=== PATIENT | male | born 1955 | race Caucasian/White ===

== ENCOUNTER 2023-03-16 11:09 | Outpatient (CLI) | payer MEDICARE, SELFPAY ==
[2023-03-16 11:36] VITALS: BP 151/72; PULSE 64; RESP 16; O2SAT 96
[2023-03-16] MEDS: TETRACAINE 0.5% OPHTH 1 DROP EYE-RIGHT ×3 (11:40→12:30)
[2023-03-16] MEDS: BRIMONIDINE TARTRATE 0.2% OPHTH 1 DROP EYE-RIGHT ×2 (11:41→12:34)
--- NOTE | 2023-03-16 12:35 | P.OPTPRC_ITS ---
Procedure Note Date of procedure: 03/16/23 Will [facility] bill your pro fee for this procedure?: Yes Procedure Description: SURGEON: Flaca Brooke MD PREOPERATIVE DIAGNOSIS: Posterior capsular opacity, right eye POSTOPERATIVE DIAGNOSIS: Posterior capsular opacity, right eye PROCEDURE: YAG laser capsulotomy, right eye ANESTHESIA: Topical. ESTIMATED BLOOD LOSS: None PATHOLOGY SPECIMEN: None COMPLICATIONS: None INDICATIONS: See consult note for details. The risks, benefits and alternatives of the procedure were explained to the patient, who elected to proceed and signed informed consent to do so. PROCEDURE: The patient was brought to the pre-holding area where the right eye was identified as the operative eye. I placed my initials above this eye. The patient received 2 sets of 1 drop of 0.5% tetracaine and 1 drop of 1% tropicamide. They also received 1 drop of 0.2% brimonidine. They received 1 drop of 0.5% tetracaine immediately prior to bringing them back for the procedure. The patient was then brought to the procedure room where the right eye was again identified as the operative eye. A YAG Valente capsulotomy lens was placed on the eye. The laser was administered using a total number of 10 shots with an energy of 2.4 mJ per shot for a total energy of 24 mJ. The patient tolerated the procedure well. DISPOSITION: The patient was taken back to the pre-holding area and given 1 drop of 0.2% brimonidine in the right eye. They were discharged to home in stable condition. The patient was instructed to call me or go to the emergency department with any sudden change, including dramatic loss of vision, severe pain in the eye or eyebrow region, nausea, or vomiting. The patient was instructed to use the 0.2% brimonidine 1 drop 2 times a day in the right eye for 1 week. The patient will follow up in the clinic in 1-2 weeks.
== END 2023-03-16 12:36 | disposition home or self-care (01) ==
LOC: EYE PRC 11:13
PROVIDERS: PCP Family Medicine; Visit Provider Ophthalmology
DX: H26.9 Unspecified cataract (principal)
CPT/HCPCS: 66821; A9270

== ENCOUNTER 2023-08-03 11:27 | Day surgery (SDC) | payer MEDICARE, SELFPAY ==
[2023-08-03] MEDS: LACTATED RINGERS 1000 ML 1,000 ML 100 ML IV (11:35)
[2023-08-03 11:59] VITALS: BP 132/74; PULSE 61; RESP 16; TEMP 36.2; O2SAT 95
[2023-08-03] MEDS: SODIUM CHLORIDE 0.9 % (FLUSH) 10 ML SYRINGE IVF (12:01)
[2023-08-03 12:02] VITALS: BMI 27.6
[2023-08-03] MEDS: BUPIVACAINE 0.5 % 10 ML VIAL INJECTION (12:30)
[2023-08-03] MEDS: TETRACAINE 0.5% OPHTH 2 DROP EYE-BOTH (12:30)
[2023-08-03] MEDS: LIDOCAINE 2%-EPI 1:200,000 20 ML INFILTRATI (12:30)
--- NOTE | 2023-08-03 13:05 | W.ANESCHARGE ---
Anesthesia Charges Start Date/Time Anesthesia Start Date: 08/03/23 Anesthesia Start Time: 12:26 Stop Date/Time Anesthesia Stop Date: 08/03/23 Anesthesia Stop Time: 13:54 Summary Extremes of Age - Over 70 or under 1: MDA
--- NOTE | 2023-08-03 13:43 | W.ANESCHARGE ---
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
--- NOTE | 2023-08-03 13:51 | P.OPTPRC_ITS ---
Procedure Note Date of procedure: 08/03/23 Will [facility] bill your pro fee for this procedure?: Yes Procedure Description: SURGEON: Flaca Brooke MD PREOPERATIVE DIAGNOSIS: Dermatochalasis, bilateral upper eyelids. POSTOPERATIVE DIAGNOSIS: Dermatochalasis, bilateral upper eyelids. NAME OF OPERATION: Bilateral upper eyelid blepharoplasty. ANESTHESIA: Local monitored anesthesia care. ESTIMATED BLOOD LOSS: Less than 2 cc. COMPLICATIONS: None. IMPLANTS: None. INDICATIONS: The patient is seen today for bilateral upper eyelid blepharoplasty. The patient complains of upper eyelids interfering with vision. I reviewed the visual mayers and facial photographs. Surgery was indicated for functional improvement of vision. The risks, benefits and alternatives were discussed pre-operatively. The risks included pain, infection, bleeding, poor cosmetic result, scarring, asymmetry, need for further treatment including surgery, inability to close lids, dry eyes, decreased vision, loss of vision and loss of eye. The benefits included improvement of symptoms. The alternative was observation and no surgery. All questions were answered to the patient's satisfaction, and the patient elected to proceed with the bilateral upper eyelid blepharoplasty. Informed consent was obtained. PROCEDURE: In a sitting position, the upper eyelid crease was marked with a marking pen, and the pinch technique was used to determine the amount of upper eyelid skin to be excised. A calipers was used to measure for symmetry and to confirm an appropriate amount of remaining skin. The patient was taken to the operating room. 4 cc of anesthetic was injected subcutaneously along the full extent of each upper eyelid. This anesthetic was made with 1:1 of 2% lidocaine with epinephrine and 0.5% bupivacaine. Both eyes were prepped and draped in the usual sterile ophthalmic fashion. The following was performed on both the right and left upper eyelid: A #15 blade was used to incise the skin. Bishops and Yonatan scissors were used to excise the skin and orbicularis muscle. Handheld cautery was used to achieve hemostasis. The eyelids were examined for symmetry. The skin was closed with a running 6-0 nylon suture. Erythromycin ointment was applied to the wounds. The patient tolerated the procedure well. DISPOSITION: The patient was sent to the recovery room and discharged to home in stable condition. The patient was given my postoperative instructions handout. The patient was told to ice as directed. The patient will apply erythromycin ophthalmic ointment to the eyelids three times a day until the sutures are removed, then for another three days. The patient will follow up in one week for suture removal or sooner as needed. The patient was instructed to call me or go to the emergency department with any sudden change, including dramatic loss of vision, excessive bleeding, redness or discharge from the incisions, or severe pain in the eye.
[2023-08-03 13:52] VITALS: BP 138/88; PULSE 57; RESP 14; TEMP 36.4; O2SAT 95
[2023-08-03 14:00] VITALS: BP 147/92; PULSE 54; RESP 14; O2SAT 98
[2023-08-03 14:15] VITALS: BP 130/94; PULSE 69; RESP 14; O2SAT 97
== END 2023-08-03 14:29 | disposition home or self-care (01) ==
LOC: OR 11:29
PROVIDERS: PCP Family Medicine; Visit Provider Ophthalmology
PROC: (CPT 15823; principal; 2023-08-03 11:45)
DX: H02.831 Dermatochalasis of right upper eyelid (principal); H02.834 Dermatochalasis of left upper eyelid; H53.8 Other visual disturbances
CPT/HCPCS: 15823; 00103; 99100; A9270; J0665; J2704; J7120